=== PATIENT | male | born 1990 | race Caucasian/White ===

== ENCOUNTER 2019-10-01 06:10 | Emergency (ER) | payer BC, OTHER ==
--- NOTE | 2019-10-01 06:45 | EDM.PDOC ---
ED HPI GENERAL MEDICAL PROBLEM - General Chief Complaint: Lower Extremity Injury/Pain Stated Complaint: RIGHT HEEL PAIN Time Seen by Provider: 10/01/19 06:39 Source of Information: Reports: Patient History Limitations: Reports: No Limitations - History of Present Illness INITIAL COMMENTS - FREE TEXT/NARRATIVE: 29-year-old male with no past medical history presents with pain to the right lateral heel after walking 2 miles yesterday. He denies any trauma or jumping or fever or chills. He denies history of gout. He did not take any medication for it. Pain is mild, localized to the right lateral calcaneus, nonradiating, no alleviating factors. ROS: A 10-point review of systems, other than pertinent positives and negatives as stated per HPI, is otherwise negative PHYSICAL EXAM General: AOx4, GCS = 15, No distress HEENT: dry mucous membrane Neck: supple, no meningismus, no Kernig or Brudzinski Cardiac: S1S2 RRR Respiratory: CTAB, no crackles or rales, no wheezing Abdomen: Soft, nontender, no rebound or guarding, nondistended, no pulsatile mass. Back: nontender Musculoskeletal: NVI distally, mild tenderness to the right lower calcaneus. No erythema, no puncture wounds, no podagra, no deformity. Neuro: No focal deficits, CN 2 - 12 WNL. right foot Pain Score (Numeric/FACES): 7 - Related Data Allergies Allergy/AdvReac Type Severity Reaction Status Date / Time No Known Allergies Allergy Verified 10/01/19 06:20 Home Meds: Home Meds Naproxen [Naprosyn] 500 mg PO Q12HR #20 tab 10/01/19 [Rx] Past Medical History - Past Health History Medical/Surgical History: Denies Medical/Surgical History HEENT History: Reports: None Cardiovascular History: Reports: None Respiratory History: Reports: None Gastrointestinal History: Reports: None Genitourinary History: Reports: None Musculoskeletal History: Reports: None Neurological History: Reports: None Psychiatric History: Reports: None Endocrine/Metabolic History: Reports: None Hematologic History: Reports: None Immunologic History: Reports: None Oncologic (Cancer) History: Reports: None Dermatologic History: Reports: None - Infectious Disease History Infectious Disease History: Reports: Chicken Pox - Past Surgical History Head Surgeries/Procedures: Reports: None Social & Family History - Family History Family Medical History: Noncontributory - Tobacco Use Smoking Status *Q: Never Smoker - Recreational Drug Use Recreational Drug Use: No Review of Systems - Review of Systems Review Of Systems: Comprehensive ROS is negative, except as noted in HPI. ED EXAM, GENERAL - Physical Exam Exam: See Below Course - Vital Signs Last Recorded V/S: Last Vital Signs Temp 96.6 F L 10/01/19 06:21 Pulse 81 10/01/19 06:21 Resp 18 10/01/19 06:21 BP 121/81 10/01/19 06:21 Pulse Ox 96 10/01/19 06:21 - Orders/Labs/Meds Orders: Active Orders 24 hr Category Date Time Status Foot 2V Rt [CR] Stat Exams 10/01/19 06:33 Taken - Re-Assessments/Exams Free Text/Narrative Re-Assessment/Exam: 10/01/19 06:45 After treatments and a prolonged observation period in the ER, the patient improved clinically and is stable for discharge. I performed a repeat examination and the patient has not demonstrated any new abnormal findings. Patient exhibits normal vital signs and has exhibited a normal gait. I advised the patient to return to the ER for reevaluation if symptoms worsened, and to follow up with their PCP within 2-3 days. MEDICAL DECISION MAKING: I reviewed the patients past medical records, lab and radiographic findings. I discussed the case with the patient. My differential diagnosis included: Plantar fasciitis, Achilles tendinitis, ankle sprain. Patient has no tenderness to the posterior calf, he had a negative Villanueva test. I do not suspect Achilles tendon injury or tendinitis. He was maximally tender to the right lateral calcaneus, with his history of walking 2 miles, this would be consistent with plantar fasciitis. He did not invert his ankle, I do not suspect ankle sprain. Departure - Departure Time of Disposition: 06:47 Disposition: Home, Self-Care 01 Condition: Good Clinical Impression: Plantar fasciitis of right foot - Discharge Information *PRESCRIPTION DRUG MONITORING PROGRAM REVIEWED*: Not Applicable *COPY OF PRESCRIPTION DRUG MONITORING REPORT IN PATIENT LOIS: Not Applicable Prescriptions: Naproxen [Naprosyn] 500 mg PO Q12HR #20 tab Instructions: Plantar Fasciitis Referrals: PCP,None [Primary Care Provider] - 1 Week Forms: ED Department Discharge Additional Instructions: The following information is given to patients seen in the emergency department who are being discharged to home. This information is to outline your options for follow-up care. We provide all patients seen in our emergency department with a follow-up referral. The need for follow-up, as well as the timing and circumstances, are variable depending upon the specifics of your emergency department visit. If you don't have a primary care physician on staff, we will provide you with a referral. We always advise you to contact your personal physician following an emergency department visit to inform them of the circumstance of the visit and for follow-up with them and/or the need for any referrals to a consulting specialist. The emergency department will also refer you to a specialist when appropriate. This referral assures that you have the opportunity for follow-up care with a specialist. All of these measure are taken in an effort to provide you with optimal care, which includes your follow-up. Under all circumstances we always encourage you to contact your private physician who remains a resource for coordinating your care. When calling for fo llow-up care, please make the office aware that this follow-up is from your recent emergency room visit. If for any reason you are refused follow-up, please contact the [facility] Emergency Department at and asked to speak to the emergency department charge nurse. If you do not have a primary care doctor, please follow up with the clinics below within 3-5 days. Trey Cuevas [facility] - Primary Care [address] [place] [id number] [facility] [address] [place] [address] Sepsis Event Note (ED) - Evaluation Sepsis Screening Result: No Definite Risk - Focused Exam Vital Signs: Vital Signs Temp Pulse Resp BP Pulse Ox 10/01/19 06:21 96.6 F L 81 18 121/81 96 - My Orders Last 24 Hours: My Active Orders 10/01/19 06:33 Foot 2V Rt [CR] Stat - Assessment/Plan Last 24 Hours: My Active Orders 10/01/19 06:33 Foot 2V Rt [CR] Stat
--- NOTE | 2019-10-01 07:06 | CR ---
Indication: Pain. No known trauma Technique: A total of two views of the right foot were acquired. Comparison: None Findings: Bones: Alignment is normal. No fractures or bone lesions. Joint spaces: Unremarkable. Soft tissues: Unremarkable. Impression: Normal examination. Dictated by Antoine Spring MD @ Oct 01 2019 7:02AM Signed by Dr. Antoine Spring @ Oct 01 2019 7:03AM
== END 2019-10-01 07:32 | disposition home or self-care (01) ==
LOC: MW.ED 06:10
DX: M72.2 Plantar fascial fibromatosis (principal)
CPT/HCPCS: 73620-26-RT; 73620-RT; 99283; 99283-25

== ENCOUNTER 2021-01-06 20:51 | Emergency (ER) | payer BC ==
[2021-01-06] MEDS ORDERED: Ketorolac 60 MG/2 ML SDV IM ONE (21:36)
--- NOTE | 2021-01-06 21:45 | EDM.PDOC ---
ED HPI GENERAL MEDICAL PROBLEM - General Chief Complaint: Lower Extremity Injury/Pain Stated Complaint: LT FOOT INJURY Time Seen by Provider: 01/06/21 21:27 Source of Information: Reports: Patient History Limitations: Reports: No Limitations - History of Present Illness INITIAL COMMENTS - FREE TEXT/NARRATIVE: HISTORY AND PHYSICAL: History of present illness: The patient is a 30-year-old male who presents to the emergency department with complaints of left foot pain after hiking yesterday. The patient denies any rolling or injury. The patient states that he was able to complete the hike up the hill and once down the hill resting he noticed his foot was hurting. The patient has tried Tylenol, Motrin, ice, and heat but nothing has been helping the pain. The patient has never had anything like this previous. Patient denies any fever, chills, headache, change in vision, syncope or near syncope. Denies any chest pain, back pain, shortness of breath or cough. Denies any abdominal pain, nausea, vomiting, diarrhea, constipation or dysuria. Has not noted any blood in urine or stool. Patient has been eating and drinking appropriately. Review of systems: As per history of present illness and below otherwise all systems reviewed and negative. Past medical history: As per history of present illness and as reviewed below otherwise noncontributory. Surgical history: As per history of present illness and as reviewed below otherwise noncontributory. Social history: See social history for further information Family history: As per history of present illness and as reviewed below otherwise noncontributory. Physical exam: General: Well developed and well nourished. Alert and orientated x 3. Nontoxic in appearance and in no acute distress. Vital signs are stable and have been reviewed by me. Nursing notes were reviewed. HEENT: Atraumatic, normocephalic, pupils equal and reactive bilaterally, negative for conjunctival pallor or scleral icterus, mucous membranes moist, TMs normal bilaterally, throat clear, neck supple, nontender, trachea midline. No drooling or trismus noted. No meningeal signs. No hot potato voice noted. Lungs: Clear to auscultation bilaterally. No wheezes, rales, or rhonchi. Chest nontender. Normal work of breathing, no accessory muscles used. Heart: S1S2, regular rate and rhythm without overt murmur, gallops, or rubs. No JVD. No peripheral edema Abdomen: Soft, nondistended, nontender. Normoactive bowel sounds. Negative for masses or costovertebral tenderness. Skin: Intact, warm, dry. No lesions or rashes noted. Hematologic: No petechiae or purpra. Mucosa appropriate color and normal nail bed color and refill. Extremities: Left foot with midfoot swelling, and redness. Numb to touch. Delayed cap refill midfoot. Normal cap refill toes. Pedal pulse 3+. moves all other extremities per self without difficulty or deficits, negative for cords or calf pain. Neurovascular unremarkable. Neuro: Awake, alert, oriented. Cranial nerves II through XII unremarkable. Cerebellum unremarkable. Motor and sensory unremarkable throughout. Exam nonfocal. Psychiatric: Mood and affect are appropriate. Normal thought process. Answering questions appropriately. Notes: *This patient was seen and evaluated during the 2019 SARS-CoV-2 novel coronavirus pandemic period. Community viral transmission is ongoing at time of this encounter and the emergency department is operating under pandemic response procedures. As stated above the patient is a 30-year-old that presents to the emergency room with left foot swelling after going for a hike yesterday. Case consulted with Dr. Nation. The patient has midfoot swelling and redness. He has delayed capillary refill midfoot. He has a good pedal pulse. He has good cap refill on his toes. I will obtain a foot x-ray and treat the patient's discomfort with Toradol. If the foot x-ray is negative I will put the patient in a postop shoe give him a few days of pain medication and have him follow-up with the counter top assembler. The patient is agreeable with this discharge plan. I have talked with the patient about today's findings, in addition to providing specific details for plan of care. Reassessment at the time of disposition demonstrates that the patient is in no acute distress. The patient is stable for discharge, counseling was provided and we discussed in great detail signs and symptoms that would prompt them to return to the Emergency Department. Medication, follow up and supportive care measures were reviewed and discussed. Voices understanding and is agreeable to plan of care. Denies any further questions or concerns at this time. Diagnostics: Left foot x-ray Therapeutics:Post op shoe for patient to wear to promote healing and provide comfort to wear unitl follow up with counter top assembler., Toradol, Gracewood Prescription: Gracewood 325/5 1-2 tabs every 4-6 hours as needed for pain Impression: Left foot pain Plan: 1. You were evaluated today on an emergent basis. Your left foot pain was evaluated with an x-ray which was negative. You most likely have irritation of your tendons which can be treated with NSAIDs such as Motrin etc. milligrams every 8 hours. I have prescribed you Gracewood 1-2 tabs every 4-6 hours as needed for pain. I gave you a postop shoe to manage your discomfort. You need to follow-up with a counter top assembler by the end of the next week. Dr. Felix Baca at [phone]. If you have any changes or worsening of condition please return to the emergency department for further evaluation. 2. You can alternate Tylenol and ibuprofen as needed for pain and fever management. 3. We encourage you to follow up with your primary care provider and/or recommended specialist in the next few days for re-evaluation and further care/management. 4. If your symptoms should worsen, new symptoms develop or any of the signs and symptoms we discussed should arise please return to the emergency room or call 911 (if needed). Definitive disposition and diagnosis as appropriate pending reevaluation and review of above. Left Foot Pain Score (Numeric/FACES): 6 - Related Data Allergies Allergy/AdvReac Type Severity Reaction Status Date / Time No Known Allergies Allergy Verified 10/01/19 06:20 Home Meds: Home Meds Naproxen [Naprosyn] 500 mg PO Q12HR #20 tab 10/01/19 [Rx] Past Medical History - Past Health History Medical/Surgical History: Denies Medical/Surgical History HEENT History: Reports: None Cardiovascular History: Reports: None Respiratory History: Reports: None Gastrointestinal History: Reports: None Genitourinary History: Reports: None Musculoskeletal History: Reports: None Neurological History: Reports: None Psychiatric History: Reports: None Endocrine/Metabolic History: Reports: None Hematologic History: Reports: None Immunologic History: Reports: None Oncologic (Cancer) History: Reports: None Dermatologic History: Reports: None - Infectious Disease History Infectious Disease History: Reports: Chicken Pox - Past Surgical History Head Surgeries/Procedures: Reports: None Social & Family History - Family History Family Medical History: No Pertinent Family History Review of Systems - Review of Systems Review Of Systems: Comprehensive ROS is negative, except as noted in HPI. ED EXAM, GENERAL - Physical Exam Exam: Not Obtained (See dictation) Course - Vital Signs Last Recorded V/S: Last Vital Signs Temp 96.9 F 01/06/21 21:23 Pulse 87 01/06/21 23:30 Resp 18 01/06/21 23:30 BP 142/96 H 01/06/21 23:30 Pulse Ox 97 01/06/21 23:30 - Orders/Labs/Meds Meds: Medications Discontinued Medications Generic Name Dose Route Start Last Admin Trade Name Freq PRN Reason Stop Dose Admin Hydrocodone Bitart/Acetaminophen 1 tab 01/06/21 22:29 01/06/21 22:35 Acetaminophen/Hydrocodone 325-5 Mg Tab PO 01/06/21 22:30 1 tab ONETIME ONE Administration Ketorolac Tromethamine 60 mg 01/06/21 21:36 01/06/21 22:05 Ketorolac 60 Mg/2 Ml Sdv IM 01/06/21 21:37 60 mg ONETIME ONE Administration Departure - Departure Time of Disposition: 22:39 Disposition: Home, Self-Care 01 Condition: Good Clinical Impression: Foot pain, left - Discharge Information *PRESCRIPTION DRUG MONITORING PROGRAM REVIEWED*: No *COPY OF PRESCRIPTION DRUG MONITORING REPORT IN PATIENT LOIS: No Instructions: Foot Pain Referrals: PCP,None [Primary Care Provider] - Forms: ED Department Discharge Additional Instructions: The following information is given to patients seen in the emergency department who are being discharged to home. This information is to outline your options for follow-up care. We provide all patients seen in our emergency department with a follow-up referral. The need for follow-up, as well as the timing and circumstances, are variable depending upon the specifics of your emergency department visit. If you don't have a primary care physician on staff, we will provide you with a referral. We always advise you to contact your personal physician following an emergency department visit to inform them of the circumstance of the visit and for follow-up with them and/or the need for any referrals to a consulting specialist. The emergency department will also refer you to a specialist when appropriate. This referral assures that you have the opportunity for follow-up care with a specialist. All of these measure are taken in an effort to provide you with optimal care, which includes your follow-up. Under all circumstances we always encourage you to contact your private physician who remains a resource for coordinating your care. When calling for follow-up care, please make the office aware that this follow-up is from your recent emergency room visit. If for any reason you are refused follow-up, please contact the [facility] Emergency Department at and asked to speak to the emergency department charge nurse. [facility] - Primary Care [address] [place] [id number] [facility] [address] [place] [id number] Plan: 1. You were evaluated today on an emergent basis. Your left foot pain was evaluated with an x-ray which was negative. You most likely have irritation of your tendons which can be treated with NSAIDs such as Motrin etc. milligrams every 8 hours. I have prescribed you Gracewood 1-2 tabs every 4-6 hours as needed for pain. I gave you a postop shoe to manage your discomfort. You need to follow-up with a counter top assembler by the end of the next week. Dr. Felix Baca at [phone]. If you have any changes or worsening of condition please return to the emergency department for further evaluation. 2. You can alternate Tylenol and ibuprofen as needed for pain and fever management. 3. We encourage you to follow up with your primary care provider and/or recommended specialist in the next few days for re-evaluation and further care/management. 4. If your symptoms should worsen, new symptoms develop or any of the signs and symptoms we discussed should arise please return to the emergency room or call 911 (if needed). Sepsis Event Note (ED) - Evaluation Sepsis Screening Result: No Definite Risk
[2021-01-06] MEDS ORDERED: Acetaminophen/HYDROcodone 325-5 MG Tab PO ONE (22:29)
--- NOTE | 2021-01-06 23:06 | CR ---
INDICATION: Medial foot pain from hiking earlier today TECHNIQUE: Foot radiograph 3 views left COMPARISON: None FINDINGS: Bone: No acute fractures or aggressive bone lesions are identified. Joint: The visualized hindfoot, midfoot, and forefoot joints are unremarkable in appearance. No significant ankle effusion is seen. Soft tissue: Unremarkable. No radiopaque foreign bodies are seen. IMPRESSION: 1. No acute osseous injuries or abnormalities are noted. Dictated by: Herbert Casarez MD @ 01/06/2021 23:04:10 (Electronically Signed)
== END 2021-01-06 23:29 | disposition home or self-care (01) ==
LOC: MW.ED 20:51
DX: M79.672 Pain in left foot (principal)
CPT/HCPCS: 73630; 96372; 99283; A9270; J1885